=== PATIENT | female | born 1935 | race Caucasian/White ===

== ENCOUNTER 2019-07-13 21:23 | Inpatient (IN) | payer MEDICAID ==
[~2019-07-13] VITALS: Ht 152.4 cm; Wt 82.7 kg
[2019-07-13] MEDS ORDERED: MONT10TA21 PO (21:38)
[2019-07-13] MEDS ORDERED: ONDA-104 PO (21:38)
[2019-07-13] MEDS ORDERED: FLUT44HFA IH (21:38)
[2019-07-13] MEDS ORDERED: MAGOX PEG (21:38)
[2019-07-13] MEDS ORDERED: LEVO100 PO (21:38)
[2019-07-13] MEDS ORDERED: LEVO500 PO (21:38)
[2019-07-13] MEDS ORDERED: FLUT16H NASAL (21:38)
[2019-07-13] MEDS ORDERED: ALBU90AE IH (21:38)
[2019-07-13] MEDS ORDERED: FOLI0.8T2 PO (21:38)
[2019-07-13] MEDS ORDERED: OMEP20 PO (21:38)
[2019-07-13] MEDS ORDERED: PRAV10TA39 PO (21:38)
[2019-07-13] MEDS ORDERED: METO-296 PO (21:38)
[2019-07-13] MEDS ORDERED: INSU100I3 SQ (21:38)
[2019-07-13] MEDS ORDERED: IPRA4AER IH (21:38)
[2019-07-13] MEDS ORDERED: ASPI81 PO (21:38)
[2019-07-13] MEDS ORDERED: BECL10.62 IH (21:38)
[2019-07-13] MEDS ORDERED: INSLAN SQ (21:38)
[2019-07-13] MEDS ORDERED: ALLO100T PO (21:38)
[2019-07-13] MEDS ORDERED: GABA-529 PO (21:38)
[2019-07-13] MEDS ORDERED: GENTOS OP (21:38)
[2019-07-13] MEDS ORDERED: PRED10 PO (21:38)
[2019-07-13] MEDS ORDERED: SPIR50 PO (21:38)
[2019-07-13] MEDS ORDERED: FURO40 PO (21:38)
[2019-07-13 21:47] LABS: GLUCOSE,POINT OF CARE 108 MG/DL (70-110)
[2019-07-13 23:12] LABS: BASOPHILS % (AUTO) 0.5 % (0.0-2.0); EOSINOPHILS % (AUTO) 1.1 % (1.0-6.0); HEMATOCRIT 31.9 % (36-46); HEMOGLOBIN 10.9 g/dL (12.0-16.0); LYMPHOCYTES # (AUTO) 1.3 K/uL (1.0-4.8); LYMPHOCYTES % (AUTO) 15.2 % (22.0-44.0); MEAN CORPUSCULAR HEMOGLOBIN 34.5 pg (26.0-34.0); MEAN CORPUSCULAR HGB CONC 34.1 G/dL (31.0-37.0); MEAN CORPUSCULAR VOLUME 101 fL (80-100); MONOCYTES # (AUTO) 0.8 K/uL (0.1-1.0); MONOCYTES % (AUTO) 9.7 % (2.0-9.0); NEUTROPHILS # (AUTO) 6.1 K/uL (1.8-7.7); NEUTROPHILS % (AUTO) 73.5 % (40.0-70.0); PLATELET COUNT (AUTO) 203 K/uL (150-450); RED BLOOD CELL COUNT(AUTO) 3.15 MIL/uL (4.00-5.20); RED CELL DISTRIBUTION WIDTH 12.9 % (11.5-14.5)
[2019-07-13 23:38] LABS: ALBUMIN 2.9 g/dL (3.4-5.0); BILIRUBIN,TOTAL 0.3 mg/dL (0.1-1.0); CALCIUM, TOTAL 8.9 mg/dL (8.8-10.5); CREATININE 3.66 mg/dL (0.60-1.30); MAGNESIUM 1.7 mg/dL (1.80-2.40); POTASSIUM 4.2 mmol/L (3.5-5.1); TOTAL PROTEIN, SERUM 6.5 g/dL (6.4-8.2)
[2019-07-14 00:46] LABS: APPEARANCE,URINE CLEAR (CLEAR); BILIRUBIN,URINE NEGATIVE (NEGATIVE); GLUCOSE, URINE (UA) NEGATIVE (NEGATIVE); KETONES,URINE NEGATIVE (NEGATIVE); LEUKOCYTE ESTERASE ,URINE NEGATIVE (NEGATIVE); NITRATE,URINE NEGATIVE (NEGATIVE); OCCULT BLOOD,URINE NEGATIVE (NEGATIVE); PROTEIN,URINE NEGATIVE (NEGATIVE); UROBILINOGEN,URINE 0.2 mg/dL (<=1.0)
[2019-07-14] MEDS ORDERED: IOVERSOL 320 MG/ML 100 ML VIAL ONE (01:12)
[2019-07-14] MEDS ORDERED: SODIUM CHLORIDE 0.9% 100 ML ONE (01:12)
[2019-07-14] MEDS ORDERED: MAGNESIUM SULFATE 1 GM in DEXTROSE 5%-WATER 50 ML IV ONE (03:00)
[2019-07-14] MEDS ORDERED: 0.9% SODIUM CHLORIDE 10 ML SYRINGE IVP PRN (04:00)
[2019-07-14] MEDS ORDERED: ACETAMINOPHEN 325 MG TABLET PO PRN ×2 (04:00→17:45)
[2019-07-14] MEDS ORDERED: ONDANSETRON HCL 4 MG/2 ML VIAL IVP PRN ×2 (04:00→17:45)
[2019-07-14 08:15] VITALS: BP 102/58
[2019-07-14 11:18] VITALS: BP 120/59
[2019-07-14 15:04] VITALS: BP 108/52
[2019-07-14 15:33] LABS: BASOPHILS % (AUTO) 0.6 % (0.0-2.0); EOSINOPHILS % (AUTO) 1.5 % (1.0-6.0); HEMATOCRIT 33.5 % (36-46); HEMOGLOBIN 11.2 g/dL (12.0-16.0); LYMPHOCYTES % (AUTO) 14.1 % (22.0-44.0); MEAN CORPUSCULAR HEMOGLOBIN 34.3 pg (26.0-34.0); MEAN CORPUSCULAR HGB CONC 33.5 G/dL (31.0-37.0); MEAN CORPUSCULAR VOLUME 103 fL (80-100); MONOCYTES # (AUTO) 0.7 K/uL (0.1-1.0); MONOCYTES % (AUTO) 9.1 % (2.0-9.0); NEUTROPHILS # (AUTO) 5.4 K/uL (1.8-7.7); NEUTROPHILS % (AUTO) 74.7 % (40.0-70.0); PLATELET COUNT (AUTO) 200 K/uL (150-450); RED BLOOD CELL COUNT(AUTO) 3.27 MIL/uL (4.00-5.20); RED CELL DISTRIBUTION WIDTH 12.8 % (11.5-14.5)
[2019-07-14 15:47] LABS: ALBUMIN 2.8 g/dL (3.4-5.0); BILIRUBIN,TOTAL 0.3 mg/dL (0.1-1.0); CALCIUM, TOTAL 8.8 mg/dL (8.8-10.5); CREATININE 3.2 mg/dL (0.60-1.30); MAGNESIUM 2.1 mg/dL (1.80-2.40); TOTAL PROTEIN, SERUM 6.4 g/dL (6.4-8.2)
[2019-07-14] MEDS ORDERED: MORPHINE SULFATE 2 MG/ML SYRINGE IVP PRN (17:45)
[2019-07-14] MEDS ORDERED: ZOLPIDEM TARTRATE 5 MG TABLET PO PRN (17:45)
[2019-07-14] MEDS ORDERED: MAGNESIUM HYDROXIDE SUSPENSION 30 ML UDCUP PO PRN (17:45)
[2019-07-14] MEDS ORDERED: IPRATROPIUM BROMIDE 0.5 MG/2.5 ML NEB SOLUTION NEB PRN (17:45)
[2019-07-14] MEDS ORDERED: ALBUTEROL SULFATE 2.5 MG/0.5 ML NEB SOLUTION NEB PRN (17:45)
[2019-07-14] MEDS ORDERED: HYDROCODONE/ACETAMINOPHEN 5-325 MG TABLET PO PRN (17:45)
[2019-07-14] MEDS ORDERED: BISACODYL 10 MG RECTAL RECTAL SUPPOSITORY PR PRN (17:45)
[2019-07-14] MEDS ORDERED: DEX IP PRN (18:00)
[2019-07-14] MEDS ORDERED: PERITON DIALYSIS IP PRN (18:00)
[2019-07-14] MEDS ORDERED: VANCOMYCIN HCL IP PRN (18:00)
[2019-07-14] MEDS ORDERED: SODIUM CHLORIDE 0.9% 500 ML IV ONE (18:15)
[2019-07-14] MEDS: INSULIN LISPRO 100 UNITS/ML SQ SCH (19:05)
[2019-07-14] MEDS: DOCUSATE SODIUM 100 MG CAPSULE PO SCH (20:26)
[2019-07-14] MEDS: OMEPRAZOLE 20 MG CAPSULE PO SCH (20:26)
[2019-07-14] MEDS: GABAPENTIN 100 MG CAPSULE PO SCH (20:26)
[2019-07-14] MEDS: MONTELUKAST SODIUM 10 MG TABLET PO SCH (20:26)
[2019-07-14 20:28] VITALS: BP 105/55
[2019-07-14] MEDS: INSULIN GLARGINE,HUM.REC.ANLOG 100 UNITS/ML SQ SCH (20:28)
[2019-07-14] MEDS ORDERED: INSULIN ASPART SQ SCH (21:00)
[2019-07-14] MEDS: PRAVASTATIN SODIUM 10 MG TABLET PO SCH (21:00)
[2019-07-14] MEDS: MAGNESIUM OXIDE 400 MG TABLET PEG SCH (21:00)
[2019-07-14] MEDS: MAGNESIUM OXIDE 400 MG TABLET PO SCH (22:18)
[2019-07-14] MEDS: HEPARIN SODIUM,PORCINE 5,000 UNITS/ML VIAL SQ SCH (23:22)
[2019-07-15 00:51] VITALS: BP 105/58
[2019-07-15 04:31] VITALS: BP 116/69
[2019-07-15] MEDS: LEVOTHYROXINE SODIUM 100 MCG TABLET PO SCH (05:57)
[2019-07-15 07:46] LABS: ALBUMIN 3.2 g/dL (3.4-5.0); BILIRUBIN,TOTAL 0.5 mg/dL (0.1-1.0); CALCIUM, TOTAL 9.4 mg/dL (8.8-10.5); CREATININE 2.72 mg/dL (0.60-1.30); POTASSIUM 4.3 mmol/L (3.5-5.1); TOTAL PROTEIN, SERUM 7.4 g/dL (6.4-8.2)
[2019-07-15 07:46] LABS: GLUCOMETER DEV NAME(LOC) 5S.1; GLUCOSE,POINT OF CARE 149 MG/DL (70-110)
[2019-07-15 07:46] LABS: GLUCOMETER DEV NAME(LOC) 5S.2A; GLUCOSE,POINT OF CARE 168 MG/DL (70-110)
[2019-07-15 07:46] LABS: GLUCOMETER DEV NAME(LOC) 5S.2A; GLUCOSE,POINT OF CARE 157 MG/DL (70-110)
[2019-07-15 08:09] VITALS: BP 111/53
[2019-07-15] MEDS: HEPARIN SODIUM,PORCINE 5,000 UNITS/ML VIAL SQ SCH ×3 (08:39→23:48)
[2019-07-15] MEDS: VITAMIN B COMP/VIT C/FOLIC ACID CAPSULE PO SCH (08:39)
[2019-07-15] MEDS: SPIRONOLACTONE 50 MG TABLET PO SCH (08:39)
[2019-07-15] MEDS: ASPIRIN 81 MG CHEWABLE TABLET PO SCH (08:40)
[2019-07-15] MEDS: OMEPRAZOLE 20 MG CAPSULE PO SCH ×2 (08:40→20:38)
[2019-07-15] MEDS: MAGNESIUM OXIDE 400 MG TABLET PO SCH ×2 (08:40→20:38)
[2019-07-15] MEDS: MAGNESIUM OXIDE 400 MG TABLET PEG SCH ×2 (08:40→20:38)
[2019-07-15] MEDS: PredniSONE 10 MG TABLET PO SCH (08:41)
[2019-07-15] MEDS: ALLOPURINOL 100 MG TABLET PO SCH (08:48)
[2019-07-15] MEDS: DOCUSATE SODIUM 100 MG CAPSULE PO SCH ×2 (08:49→20:38)
[2019-07-15 08:55] LABS: MAGNESIUM 1.8 mg/dL (1.80-2.40); VANCOMYCIN,RANDOM 26.3 mcg/mL (25.0-50.0)
[2019-07-15] MEDS: INSULIN LISPRO 100 UNITS/ML SQ SCH ×3 (08:58→17:23)
[2019-07-15] MEDS: FLUTICASONE PROPIONATE 50 MCG/SPRAY 16 GM NASAL SPRAY NASAL SCH (09:34)
[2019-07-15 11:43] VITALS: BP 113/68
[2019-07-15 15:59] LABS: PHOSPHORUS 4.2 mg/dL (2.5-4.9)
[2019-07-15 16:14] VITALS: BP 111/68
[2019-07-15] MEDS ORDERED: GENTAMICIN SULFATE 0.3% OPHTHALMIC SOLUTION 5 ML TP SCH (18:00)
[2019-07-15 20:31] LABS: GLUCOMETER DEV NAME(LOC) 5S.2A; GLUCOSE,POINT OF CARE 155 MG/DL (70-110)
[2019-07-15] MEDS: MONTELUKAST SODIUM 10 MG TABLET PO SCH (20:38)
[2019-07-15] MEDS: PRAVASTATIN SODIUM 10 MG TABLET PO SCH (20:39)
[2019-07-15] MEDS: GABAPENTIN 100 MG CAPSULE PO SCH (20:39)
[2019-07-15] MEDS: INSULIN GLARGINE,HUM.REC.ANLOG 100 UNITS/ML SQ SCH (20:40)
[2019-07-15 20:52] VITALS: BP 114/57
[2019-07-16 00:07] VITALS: BP 110/48
[2019-07-16 05:14] VITALS: BP 120/63
[2019-07-16] MEDS: LEVOTHYROXINE SODIUM 100 MCG TABLET PO SCH (06:14)
[2019-07-16 06:41] LABS: ALBUMIN 2.8 g/dL (3.4-5.0); BILIRUBIN,TOTAL 0.4 mg/dL (0.1-1.0); CALCIUM, TOTAL 8.9 mg/dL (8.8-10.5); CREATININE 2.54 mg/dL (0.60-1.30); MAGNESIUM 1.9 mg/dL (1.80-2.40); POTASSIUM 4.4 mmol/L (3.5-5.1); TOTAL PROTEIN, SERUM 6.6 g/dL (6.4-8.2)
[2019-07-16 07:55] VITALS: BP 118/99
[2019-07-16 08:01] LABS: GLUCOMETER DEV NAME(LOC) 5S.1; GLUCOSE,POINT OF CARE 186 MG/DL (70-110)
[2019-07-16 08:01] LABS: GLUCOMETER DEV NAME(LOC) 5S.1; GLUCOSE,POINT OF CARE 150 MG/DL (70-110)
[2019-07-16 08:01] LABS: GLUCOMETER DEV NAME(LOC) 5S.1; GLUCOSE,POINT OF CARE 201 MG/DL (70-110)
[2019-07-16] MEDS: OMEPRAZOLE 20 MG CAPSULE PO SCH (08:15)
[2019-07-16] MEDS: PredniSONE 10 MG TABLET PO SCH (08:16)
[2019-07-16] MEDS: ASPIRIN 81 MG CHEWABLE TABLET PO SCH (08:16)
[2019-07-16] MEDS: DOCUSATE SODIUM 100 MG CAPSULE PO SCH (08:16)
[2019-07-16] MEDS: MAGNESIUM OXIDE 400 MG TABLET PO SCH (08:16)
[2019-07-16] MEDS: VITAMIN B COMP/VIT C/FOLIC ACID CAPSULE PO SCH (08:16)
[2019-07-16] MEDS: ALLOPURINOL 100 MG TABLET PO SCH (08:16)
[2019-07-16] MEDS: FLUTICASONE PROPIONATE 50 MCG/SPRAY 16 GM NASAL SPRAY NASAL SCH (08:16)
[2019-07-16] MEDS: HEPARIN SODIUM,PORCINE 5,000 UNITS/ML VIAL SQ SCH (08:16)
[2019-07-16] MEDS: INSULIN LISPRO 100 UNITS/ML SQ SCH ×2 (08:23→12:00)
[2019-07-16] MEDS: SPIRONOLACTONE 50 MG TABLET PO SCH (08:24)
[2019-07-16 12:05] VITALS: BP 107/64
[2019-07-16 15:21] LABS: GLUCOMETER DEV NAME(LOC) 5S.1; GLUCOSE,POINT OF CARE 114 MG/DL (70-110)
[2019-07-17 21:46] LABS: GLUCOMETER DEV NAME(LOC) 5S.2A; GLUCOSE,POINT OF CARE 150 MG/DL (70-110)
== END 2019-07-16 13:15 | disposition home or self-care (01) | DRG 425 ==
LOC: EDBD 21:25 → EMS 21:25 → 5S 07-14 05:15
PROVIDERS: ADMIT Hospitalist; ATTEND Hospitalist
PROC: 3E1M39Z Irrigation of Peritoneal Cavity using Dialysate, Percutaneous Approach (ICD-10-PCS; principal; 2019-07-14)
PROC: 3E1M39Z Irrigation of Peritoneal Cavity using Dialysate, Percutaneous Approach (ICD-10-PCS; 2019-07-15)
PROC: 3E1M39Z Irrigation of Peritoneal Cavity using Dialysate, Percutaneous Approach (ICD-10-PCS; 2019-07-16)
DX: E83.42 Hypomagnesemia (principal); E11.22 Type 2 diabetes mellitus with diabetic chronic kidney disease; I12.0 Hypertensive chronic kidney disease with stage 5 chronic kidney disease or end stage renal disease; M79.10 Myalgia, unspecified site; N18.6 End stage renal disease; Z99.2 Dependence on renal dialysis; Z88.0 Allergy status to penicillin; J45.909 Unspecified asthma, uncomplicated; E03.9 Hypothyroidism, unspecified; F32.9 Major depressive disorder, single episode, unspecified; R25.2 Cramp and spasm
CPT/HCPCS: 70491; 83735; 84100; 87081; 93005; 99291; G0378; J1644; J1815; J3370; J3475; J7040; J7050; J7060

== ENCOUNTER 2019-07-16 17:09 | Emergency (ER) | payer MEDICAID ==
[~2019-07-16] VITALS: Ht 144.8 cm; Wt 78.0 kg
[~2019-07-16 17:09] MED LIST: ALBU90AE IH; ALLO100T PO; ASPI81 PO; BECL10.62 IH; FLUT16H NASAL; FLUT44HFA IH; FOLI0.8T2 PO; FURO40 PO; GABA-529 PO; GENTOS OP; INSLAN SQ; INSU100I3 SQ; IPRA4AER IH; LEVO100 PO; LEVO500 PO; MAGOX PEG; METO-296 PO; MONT10TA21 PO; OMEP20 PO; ONDA4 PO; PRAV10TA39 PO; PRED10 PO; SPIR50 PO
[2019-07-16 17:26] LABS: GLUCOSE,POINT OF CARE 215 MG/DL (70-110)
[2019-07-16] MEDS ORDERED: MetroNIDAZOLE 500 MG/NACL 100 ML IV ONE ×2 (21:00→22:00)
[2019-07-16 21:42] LABS: BASOPHILS % (AUTO) 0.4 % (0.0-2.0); EOSINOPHILS % (AUTO) 0.6 % (1.0-6.0); HEMATOCRIT 33.5 % (36-46); HEMOGLOBIN 11.2 g/dL (12.0-16.0); LYMPHOCYTES # (AUTO) 1.2 K/uL (1.0-4.8); LYMPHOCYTES % (AUTO) 15.6 % (22.0-44.0); MEAN CORPUSCULAR HEMOGLOBIN 34.2 pg (26.0-34.0); MEAN CORPUSCULAR HGB CONC 33.4 G/dL (31.0-37.0); MEAN CORPUSCULAR VOLUME 102 fL (80-100); MONOCYTES # (AUTO) 0.5 K/uL (0.1-1.0); MONOCYTES % (AUTO) 6.3 % (2.0-9.0); NEUTROPHILS # (AUTO) 6.1 K/uL (1.8-7.7); NEUTROPHILS % (AUTO) 77.1 % (40.0-70.0); PLATELET COUNT (AUTO) 208 K/uL (150-450); RED BLOOD CELL COUNT(AUTO) 3.27 MIL/uL (4.00-5.20); RED CELL DISTRIBUTION WIDTH 12.9 % (11.5-14.5)
[2019-07-16 21:53] LABS: CALCIUM, TOTAL 9.3 mg/dL (8.8-10.5); CREATININE 2.5 mg/dL (0.60-1.30); POTASSIUM 4.9 mmol/L (3.5-5.1)
[2019-07-16 21:59] LABS: ALBUMIN 2.9 g/dL (3.4-5.0); BILIRUBIN,TOTAL 0.4 mg/dL (0.1-1.0); TOTAL PROTEIN, SERUM 6.6 g/dL (6.4-8.2)
[2019-07-16] MEDS ORDERED: VANCOMYCIN HCL 1.5 GM in DEXTROSE 5%-WATER 250 ML IV ONE (22:00)
[2019-07-17] MEDS ORDERED: DiphenhydrAMINE HCL 50 MG/ML VIAL IVP STA (02:02)
[2019-07-17] MEDS ORDERED: KETOROLAC TROMETHAMINE 30 MG/ML VIAL IVP ONE (02:15)
[2019-07-17 03:08] VITALS: BP 118/60
== END 2019-07-17 03:19 | disposition short-term general hospital (02) ==
LOC: EMS 17:09
DX: K11.20 Sialoadenitis, unspecified (principal); E11.22 Type 2 diabetes mellitus with diabetic chronic kidney disease; I12.0 Hypertensive chronic kidney disease with stage 5 chronic kidney disease or end stage renal disease; N18.6 End stage renal disease; E03.9 Hypothyroidism, unspecified; J45.909 Unspecified asthma, uncomplicated; Z99.2 Dependence on renal dialysis; Z88.0 Allergy status to penicillin; Z79.4 Long term (current) use of insulin; Z79.899 Other long term (current) drug therapy
CPT/HCPCS: 36415; 70486; 70490; 80053; 82962; 83605; 85025; 87040; 96365; 96366; 96368; 96375; 99285; J1200; J1885; J3370; J3490; J7060